=== PATIENT | male | born 1990 | race Caucasian/White ===

== ENCOUNTER 2020-09-04 15:22 | Emergency (ER) | payer BC, OTHER ==
--- NOTE | 2020-09-04 16:25 | EDM.PDOC ---
ED HPI GENERAL MEDICAL PROBLEM - General Chief Complaint: Back Pain or Injury Stated Complaint: LOW BACK PAIN Time Seen by Provider: 09/04/20 15:50 - History of Present Illness INITIAL COMMENTS - FREE TEXT/NARRATIVE: 30-year-old male presents the emergency room with back pain. About a month ago the patient injured his back doing some heavy overhead lifting he thought he felt a pop in his back. He has been seen in the clinic a few times, however this is not getting better. Patient's been using ibuprofen sounds like 800 mg 4 times a day. He is on a PPI and Carafate for stomach trouble. 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 The patient is also noted that he is voiding more than normal. However he has not lost any bowel or bladder control. He has no pain that really extends down into his legs. The pain seems to be worse on the right side and is not midline. Right Lower Back Pain Score (Numeric/FACES): 7 - Related Data Allergies Allergy/AdvReac Type Severity Reaction Status Date / Time No Known Allergies Allergy Verified 12/06/19 13:00 CDT Home Meds: Home Meds Anti Reflux Medication 09/04/20 [History] Cyclobenzaprine [Flexeril] 10 mg PO BEDTIME #14 tab 09/04/20 [Rx] Naproxen [Naprosyn] 500 mg PO BID #20 tablet 09/04/20 [Rx] Past Medical History HEENT History: Reports: None Cardiovascular History: Reports: None Respiratory History: Reports: None Gastrointestinal History: Reports: GERD Genitourinary History: Reports: None Musculoskeletal History: Reports: Amputation Other Musculoskeletal History: L tip of ring finger Neurological History: Reports: None Psychiatric History: Reports: None Endocrine/Metabolic History: Reports: None Immunologic History: Reports: None Oncologic (Cancer) History: Reports: None Dermatologic History: Reports: None - Infectious Disease History Infectious Disease History: Reports: None - Past Surgical History Head Surgeries/Procedures: Reports: None Social & Family History - Family History Family Medical History: No Pertinent Family History - Tobacco Use Tobacco Use Status *Q: Never Tobacco User - Caffeine Use Caffeine Use: Reports: Energy Drinks - Recreational Drug Use Recreational Drug Use: No ED ROS GENERAL - Review of Systems Review Of Systems: See Below Constitutional: Reports: No Symptoms HEENT: Reports: No Symptoms Respiratory: Reports: No Symptoms Cardiovascular: Reports: No Symptoms GI/Abdominal: Reports: No Symptoms Musculoskeletal: Reports: Back Pain Neurological: Reports: No Symptoms. Denies: Numbness, Paresthesia, Tingling ED EXAM, UPPER BACK/NECK PAIN - Physical Exam Exam: See Below Exam Limited By: No Limitations General Appearance: Alert, No Apparent Distress Head Exam: Atraumatic, Normocephalic Neck Exam: Non-Tender, Full Range of Motion, Normal Alignment, Normal Inspection Cardiovascular/Respiratory: Regular Rate, Rhythm, No M/R/G, No JVD, Normal Breath Sounds, No Respiratory Distress GI/Abdominal: Normal Bowel Sounds, Soft, Non-Tender Back Exam: Normal Inspection, Muscle Spasm (Right lumbar area involving the paraspinous musculature). No: CVA Tenderness (L), CVA Tenderness (R), Vertebral Tenderness Extremities: Normal Inspection, No Pedal Edema, Other (Straight leg raises cause discomfort in the buttocks and posterior thigh area on the right side) Course - Vital Signs Last Recorded V/S: Last Vital Signs Temp 36.6 C 09/04/20 15:27 Pulse 92 09/04/20 15:27 Resp 17 09/04/20 15:27 BP 132/83 09/04/20 15:27 Pulse Ox 98 09/04/20 15:27 - Orders/Labs/Meds Orders: Active Orders 24 hr Category Date Time Status Lumbar Spine 2 or 3V [CR] Stat Exams 09/04/20 16:16 Taken Labs: Laboratory Tests 09/04/20 Range/Units 16:59 Urine Color Yellow (Yellow) Urine Appearance Clear (Clear) Urine pH 7.5 (5.0-8.0) Ur Specific [place] 1.025 (1.005-1.030) Urine Protein Trace H (Negative) Urine Glucose (UA) Negative (Negative) Urine Ketones Negative (Negative) Urine Occult Blood Negative (Negative) Urine Nitrite Negative (Negative) Urine Bilirubin Negative (Negative) Urine Urobilinogen 0.2 (0.2-1.0) Ur Leukocyte Esterase Negative (Negative) Urine RBC 0-5 (0-5) /hpf Urine WBC 0-5 (0-5) /hpf Ur Squamous Epith Cells Not seen (0-5) /hpf Amorphous Sediment Few H (NOT SEEN) /hpf Urine Bacteria Few (FEW) /hpf Urine Mucus Not seen (FEW) /hpf - Re-Assessments/Exams Free Text/Narrative Re-Assessment/Exam: 09/04/20 17:45 Analysis is not suggestive of infectious process. Lumbar spine x-rays are negative for any acute changes he has some developing degenerative changes and perhaps a slight loss of lordotic curvature. Patient will be changed to Naprosyn he seems to be tolerating large doses of ibuprofen with his stomach issues but he is taking a PPI and is on Carafate. We will give him some Flexeril for nighttime use only. Departure - Departure Time of Disposition: 17:47 Disposition: Home, Self-Care 01 Clinical Impression: Low back strain - Discharge Information Referrals: PCP,None [Ordering Only Provider] - Forms: ED Department Discharge Additional Instructions: Return to the emergency room with any questions problems or worsening symptoms. Continue to take your stomach medication the Nexium and the Carafate. You have been started on naproxen this is like ibuprofen except he take it twice a day. Stop the ibuprofen. You have been started on Flexeril, cyclobenzaprine, this is a muscle relaxant. Take 1 every evening for 7 days and then as needed allow 12 hours after using this medication before driving or returning to work. Your prescriptions have been sent electronically to [facility]. Sepsis Event Note (ED) - Evaluation Sepsis Screening Result: No Definite Risk - Focused Exam Vital Signs: Vital Signs Temp Pulse Resp BP Pulse Ox 09/04/20 15:27 36.6 C 92 17 132/83 98 - My Orders Last 24 Hours: My Active Orders 09/04/20 16:16 Lumbar Spine 2 or 3V [CR] Stat - Assessment/Plan Last 24 Hours: My Active Orders 09/04/20 16:16 Lumbar Spine 2 or 3V [CR] Stat
--- NOTE | 2020-09-06 16:09 | CR ---
Lumbar spine: AP and lateral views of the lumbar spine were obtained. Comparison: No previous lumbar spine imaging is available. Mild disc space narrowing within the lower thoracic spine as well as posterior at L1-2, L2-3, L3-4 and L4-5. Mild scattered endplate osteophytes are seen. Pedicles are intact. Transverse and spinous processes are intact. Sacroiliac joints are normal. Impression: 1. Mild degenerative change as noted above. 2. Nothing acute is definitely seen. Diagnostic code #2
== END 2020-09-04 18:07 | disposition home or self-care (01) ==
LOC: JD.ED 15:22
DX: S39.012A Strain of muscle, fascia and tendon of lower back, initial encounter (principal); X50.9XXA Other and unspecified overexertion or strenuous movements or postures, initial encounter
CPT/HCPCS: 72100; 72100-26; 81001; 99283; 99283-25

== ENCOUNTER 2020-11-09 11:46 | Emergency (ER) | payer BC ==
--- NOTE | 2020-11-09 14:20 | EDM.PDOC ---
ED HPI GENERAL MEDICAL PROBLEM - General Chief Complaint: Genitourinary Problem Stated Complaint: FREQUENT URINATION/ BURN WHILE URINATING Time Seen by Provider: 11/09/20 14:15 - History of Present Illness INITIAL COMMENTS - FREE TEXT/NARRATIVE: 30-year-old male presents the emergency room with difficulties with urination. Patient has frequency and discomfort with urination. Apparently this is been an ongoing issue the patient had a catheter placed several years ago and when he woke up he tried to pull it out and since that time he has had worsening pain with voiding. He has had difficulty getting his stream going but now he is having frequency and discomfort with this. This is new. He has an appointment to see a regular doctor coming up this next week. But now the frequency and discomfort has developed. Patient denies any suspicious exposures. And he has never had any other infectious process down here. He has not had recent fevers or chills no significant abdominal discomfort nausea or vomiting. Lower Back Pain Score (Numeric/FACES): 4 - Related Data Allergies Allergy/AdvReac Type Severity Reaction Status Date / Time No Known Allergies Allergy Verified 11/09/20 11:59 Home Meds: Home Meds Esomeprazole [NexIUM] 20 mg PO DAILY 11/09/20 [History] Past Medical History HEENT History: Reports: None Cardiovascular History: Reports: None Respiratory History: Reports: None Gastrointestinal History: Reports: None Genitourinary History: Reports: None Musculoskeletal History: Reports: Amputation Other Musculoskeletal History: L tip of ring finger Neurological History: Reports: None Psychiatric History: Reports: None Endocrine/Metabolic History: Reports: None Immunologic History: Reports: None Oncologic (Cancer) History: Reports: None Dermatologic History: Reports: None - Infectious Disease History Infectious Disease History: Reports: None - Past Surgical History Head Surgeries/Procedures: Reports: None Social & Family History - Family History Family Medical History: No Pertinent Family History - Tobacco Use Tobacco Use Status *Q: Never Tobacco User Second Hand Smoke Exposure: No - Caffeine Use Caffeine Use: Reports: Coffee - Recreational Drug Use Recreational Drug Use: No ED ROS GENERAL - Review of Systems Review Of Systems: See Below Constitutional: Reports: No Symptoms Respiratory: Reports: No Symptoms Cardiovascular: Reports: No Symptoms GI/Abdominal: Reports: No Symptoms : Reports: Dysuria, Frequency. Denies: Flank Pain, Hematuria, Incontinence, Urgency Musculoskeletal: Reports: No Symptoms Neurological: Reports: No Symptoms ED EXAM, RENAL/ - Physical Exam Exam: See Below Exam Limited By: No Limitations General Appearance: Alert, No Apparent Distress Respiratory/Chest: No Respiratory Distress, Lungs Clear, Normal Breath Sounds Cardiovascular: Regular Rate, Rhythm, No Edema, No Murmur GI/Abdominal: Normal Bowel Sounds, Soft, Non-Tender, Other (No tenderness over the bladder) Back Exam: Normal Inspection. No: CVA Tenderness (L), CVA Tenderness (R) Neurological: Alert, Oriented, Normal Cognition Course - Vital Signs Last Recorded V/S: Last Vital Signs Temp 36.1 C 11/09/20 11:56 Pulse 94 11/09/20 11:56 Resp 16 11/09/20 11:56 BP 139/85 11/09/20 11:56 Pulse Ox 97 11/09/20 11:56 - Orders/Labs/Meds Labs: Laboratory Tests 11/09/20 11/09/20 Range/Units 12:51 12:51 Urine Color Yellow (Yellow) Urine Appearance Clear (Clear) Urine pH 6.5 (5.0-8.0) Ur Specific [place] > or = 1.030 (1.005-1.030) Urine Protein Negative (Negative) Urine Glucose (UA) Negative (Negative) Urine Ketones Negative (Negative) Urine Occult Blood Negative (Negative) Urine Nitrite Negative (Negative) Urine Bilirubin Negative (Negative) Urine Urobilinogen 0.2 (0.2-1.0) Ur Leukocyte Esterase Negative (Negative) C trachomatis DNA (PCR) Not detected N gonorrhoeae DNA (PCR) Not detected - Re-Assessments/Exams Free Text/Narrative Re-Assessment/Exam: 11/09/20 15:30 Alysis is unremarkable GC and chlamydia is negative the patient probably should follow-up with urology. He has an appointment coming up this week with a new primary provider they can get that scheduled. Departure - Departure Time of Disposition: 15:30 Disposition: Home, Self-Care 01 Clinical Impression: Dysuria - Discharge Information Referrals: PCP,None [Primary Care Provider] - Forms: ED Department Discharge Additional Instructions: Return to the emergency room with any questions or problems. Today we tested your urine and there is no sign of infection we also checked for GC and chlamydia those were negative. Given your history the next best maneuver would be follow-up with a urologist. You have an appointment coming up to establish primary care they can set this up for you. Sepsis Event Note (ED) - Evaluation Sepsis Screening Result: No Definite Risk - Focused Exam Vital Signs: Vital Signs Temp Pulse Resp BP Pulse Ox 11/09/20 11:56 36.1 C 94 16 139/85 97
[2020-11-09 14:58] LABS: C. TRACHOMATIS BY PCR NOT DETECTED; N. GONORRHOEAE BY PCR NOT DETECTED
== END 2020-11-09 15:40 | disposition home or self-care (01) ==
LOC: JD.ED 11:46
DX: R30.0 Dysuria (principal); R35.0 Frequency of micturition; M54.5 Low back pain
CPT/HCPCS: 81003; 87491; 87591; 99282; 99283

== ENCOUNTER 2021-01-30 14:15 | Emergency (ER) | payer BC, OTHER ==
[2021-01-30] MEDS ORDERED: HYDROmorphone 1 MG/ML Syringe IM ONE (14:48)
--- NOTE | 2021-01-30 14:56 | EDM.PDOC ---
ED HPI GENERAL MEDICAL PROBLEM - General Chief Complaint: Upper Extremity Injury/Pain Stated Complaint: LT RING FINGER COMPLAINT Time Seen by Provider: 01/30/21 14:30 Source of Information: Reports: Patient, RN Notes Reviewed History Limitations: Reports: No Limitations - History of Present Illness INITIAL COMMENTS - FREE TEXT/NARRATIVE: Patient is a 30-year-old male who presents to the ER for his left ring finger pain. 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 He had a recent follow-up with his surgeon, for a small lump on the side of his finger, and the surgeon thought that this was likely just scar tissue forming. Patient notes that since then, the lump has been getting more progressively red, tender, and it feels like there is a heartbeat in the lump. This is roughly pea-sized on the patient's left distal ring finger. He states it is fairly tender, and he cannot really do much for work, is taking his gloves on and off seems to hurt even worse. He is not take anything at home for pain management. He said no fevers or chills, cough or shortness of breath, nausea/vomiting/diarrhea. Left Finger-Ring Pain Score (Numeric/FACES): 7 - Related Data Allergies Allergy/AdvReac Type Severity Reaction Status Date / Time No Known Allergies Allergy Verified 11/09/20 11:59 Home Meds: Home Meds Esomeprazole [NexIUM] 20 mg PO DAILY 11/09/20 [History] Acetaminophen/oxyCODONE [Percocet 325-5 MG] 1 each PO Q6H PRN #12 tab 01/30/21 [Rx] Doxycycline [Vibramycin] 100 mg PO BID 7 Days #14 tab 01/30/21 [Rx] Past Medical History HEENT History: Reports: None Cardiovascular History: Reports: None Respiratory History: Reports: None Gastrointestinal History: Reports: None Genitourinary History: Reports: None Musculoskeletal History: Reports: Amputation Other Musculoskeletal History: L tip of ring finger Neurological History: Reports: None Psychiatric History: Reports: None Endocrine/Metabolic History: Reports: None Immunologic History: Reports: None Oncologic (Cancer) History: Reports: None Dermatologic History: Reports: None - Infectious Disease History Infectious Disease History: Reports: None - Past Surgical History Head Surgeries/Procedures: Reports: None Social & Family History - Family History Family Medical History: No Pertinent Family History - Tobacco Use Tobacco Use Status *Q: Never Tobacco User - Caffeine Use Caffeine Use: Reports: Energy Drinks, Soda - Recreational Drug Use Recreational Drug Use: No Review of Systems - Review of Systems Review Of Systems: Comprehensive ROS is negative, except as noted in HPI. ED EXAM, GENERAL - Physical Exam Exam: See Below Exam Limited By: No Limitations General Appearance: Alert, WD/WN, No Apparent Distress Respiratory/Chest: No Respiratory Distress, Lungs Clear, Normal Breath Sounds, No Accessory Muscle Use, Chest Non-Tender Cardiovascular: Normal Peripheral Pulses, Regular Rate, Rhythm, No Edema Peripheral Pulses: 2+: Radial (L), Radial (R) Extremities: Normal Range of Motion, Normal Capillary Refill Neurological: Alert, Oriented, Normal Cognition, No Motor/Sensory Deficits Psychiatric: Normal Affect, Normal Mood Skin Exam: Warm, Dry, Intact, No Rash, Erythema (to distal left ring finger), Increased Warmth (to distal left ring finger) ED TRAUMA EXTREMITY PROCEDURES - I&D Site: Left distal finger tip Skin Prep: Chlorhexidine (Hibiciens), Saline Local Anesthesia: Lidocaine: Other (area was anesthetized with cold spray then cleaned with hibiclens) Area Incised With: 11 Blade Drainage: Purulent, Small Amount Probed to Break Up Loculations: No Sterile Dressing: Adhesive Dressing Complications: No Course - Vital Signs Last Recorded V/S: Last Vital Signs Temp 98.9 F 01/30/21 14:38 Pulse 87 01/30/21 14:38 Resp 20 01/30/21 14:38 BP 127/81 01/30/21 14:38 Pulse Ox 97 01/30/21 14:38 - Orders/Labs/Meds Meds: Medications Discontinued Medications Generic Name Dose Route Start Last Admin Trade Name Freq PRN Reason Stop Dose Admin Hydromorphone HCl 1 mg 01/30/21 14:48 Hydromorphone 1 Mg/Ml Syringe IM 01/30/21 14:49 ONETIME ONE - Re-Assessments/Exams Free Text/Narrative Re-Assessment/Exam: 01/30/21 14:55 Patient presents to the ER for the evaluation of his left ring finger lesion. This did have the appearance of a white center, this was incised and drained, there is a very scant amount of a thick white purulent material that was expressed. Some bloody material was expressed towards the end of the purulent material. Patient tolerated the procedure well. He was having quite a bit of pain after this due to the amount of pressure I had to apply to the fingertip. We will go ahead and give him 1 mg IM Dilaudid, will start him on some oral pain medication, and antibiotic medication, I did direct him to follow-up with his surgeon Dr. Sheridan on Tuesday, to let him know that he was seen in the ER and had the area drained. Departure - Departure Time of Disposition: 14:56 Disposition: Home, Self-Care 01 Condition: Good Clinical Impression: Abscess of finger of left hand - Discharge Information *PRESCRIPTION DRUG MONITORING PROGRAM REVIEWED*: Yes *COPY OF PRESCRIPTION DRUG MONITORING REPORT IN PATIENT MICKEY: No Prescriptions: Acetaminophen/oxyCODONE [Percocet 325-5 MG] 1 each PO Q6H PRN #12 tab PRN Reason: Pain Doxycycline [Vibramycin] 100 mg PO BID 7 Days #14 tab Instructions: Skin Abscess, [id number] Referrals: PCP,None [Primary Care Provider] - Additional Instructions: You were evaluated in the ER today regarding a suspected skin infection. The area on your left ring finger, was incised and drained at this ER visit, this should hopefully let the wound continue to drain over the next day or 2. You were given a prescription for a strong pain medication, oxycodone/acetaminophen 5/325 mg, please take 1 tab every 6 hours as needed for pain not relieved by Tylenol or ibuprofen alone. Please note this medication does contain Tylenol in it, so do not take more than 4000 mg in a 24-hour time span. These medications can be addictive, so please take as few as possible to achieve adequate pain control. These meds can also be quite constipating, recommend that you increase your oral fluid intake and take a stool softener like MiraLAX while taking these medications. Do not drive while taking this medication. You were given an antibiotic, doxycycline 100 mg twice daily please take as prescribed until the course is done or told otherwise by different provider. Please note that this antibiotic will take at least 48 hours to start working appropriately. Please note this antibiotic can cause some sun sensitivity, so if you are going to be outside, please use sunscreen liberally. This medication was electronically sent to the [facility] located in the [employer] [facility]. You may try to use heat/ice packs to the area to help reduce pain/swelling. Highly recommend you use some warm soapy water over the weekend, and soak the finger as much as tolerated, to also provide good wound cleansing. You may take 500 mg Tylenol or 600 mg ibuprofen every 6 hours as needed for further pain relief. Do not exceed 4000 mg Tylenol or 3200 mg ibuprofen in a 24-hour time span. Please return to the ER at any time if your symptoms change or worsen. Sepsis Event Note (ED) - Evaluation Sepsis Screening Result: No Definite Risk - Focused Exam Vital Signs: Vital Signs Temp Pulse Resp BP Pulse Ox 01/30/21 14:38 98.9 F 87 20 127/81 97
[2021-01-30] MEDS ORDERED: Acetaminophen/oxyCODONE 325-5 MG Tab PO ONE (15:12)
== END 2021-01-30 15:30 | disposition home or self-care (01) ==
LOC: JD.ED 14:15
DX: L02.512 Cutaneous abscess of left hand (principal)
CPT/HCPCS: 26010; 99283; A9270; 10060

== ENCOUNTER 2021-03-01 14:42 | Emergency (ER) | payer OTHER ==
--- NOTE | 2021-03-01 15:29 | EDM.PDOC ---
ED HPI GENERAL MEDICAL PROBLEM - General Chief Complaint: Wound Recheck Stated Complaint: FINGER INFECTED FROM WORK INJURY Time Seen by Provider: 03/01/21 14:45 Source of Information: Reports: Patient History Limitations: Reports: No Limitations - History of Present Illness INITIAL COMMENTS - FREE TEXT/NARRATIVE: 30-year-old male presents the emergency department with complaints of left ring finger pain. 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 He was recently seen in the emergency department about a month ago and at that time the distal tip of the finger had a pea-sized lump noted with a white tip. The provider did ryan the area and did get a small amount of thick white drainage from it and then he was started on doxycycline. The patient states that this did not seem to work and he still is having a significant amount of pain to the area that was lanced. He states that any little bit of bumping the finger causes him exquisite pain. He denies any fever, chills, nausea, vomiting or diarrhea. He was instructed to follow-up with the surgeon who performed the amputation however he states he works on [employer] and has not had time. Left Finger-Ring Pain Score (Numeric/FACES): 8 - Related Data Allergies Allergy/AdvReac Type Severity Reaction Status Date / Time No Known Allergies Allergy Verified 03/01/21 15:00 Home Meds: Home Meds Esomeprazole [NexIUM] 20 mg PO DAILY 11/09/20 [History] Past Medical History HEENT History: Reports: None Cardiovascular History: Reports: None Respiratory History: Reports: None Gastrointestinal History: Reports: None Genitourinary History: Reports: None Musculoskeletal History: Reports: Amputation Other Musculoskeletal History: L tip of ring finger Neurological History: Reports: None Psychiatric History: Reports: None Endocrine/Metabolic History: Reports: None Immunologic History: Reports: None Oncologic (Cancer) History: Reports: None Dermatologic History: Reports: None - Infectious Disease History Infectious Disease History: Reports: None - Past Surgical History Head Surgeries/Procedures: Reports: None Social & Family History - Family History Family Medical History: No Pertinent Family History - Tobacco Use Tobacco Use Status *Q: Never Tobacco User Second Hand Smoke Exposure: No - Caffeine Use Caffeine Use: Reports: Energy Drinks, Soda - Recreational Drug Use Recreational Drug Use: No Review of Systems - Review of Systems Review Of Systems: Comprehensive ROS is negative, except as noted in HPI. ED EXAM, GENERAL - Physical Exam Exam: See Below Exam Limited By: No Limitations General Appearance: Alert, WD/WN, No Apparent Distress Ears: Normal External Exam, Hearing Grossly Normal Nose: Normal Inspection Throat/Mouth: Normal Inspection, Normal Lips, Normal Voice, No Airway Compromise Head: Atraumatic Neck: Normal Inspection, Supple Respiratory/Chest: No Respiratory Distress, No Accessory Muscle Use Cardiovascular: Normal Peripheral Pulses, Regular Rate, Rhythm GI/Abdominal: No Distention (Male) Exam: Deferred Rectal (Males) Exam: Deferred Back Exam: Normal Inspection Extremities: Normal Range of Motion, No Pedal Edema, Normal Capillary Refill. No: Normal Inspection (Scabbed pen tip sized area noted to medial portion of distal tip of the left ring finger), Non-Tender (Tenderness noted to distal tip of left ring finger) Neurological: Alert, Oriented, Normal Cognition Psychiatric: Normal Affect, Normal Mood Skin Exam: Warm, Dry, Normal Color, No Rash. No: Intact (Scabbed pen tip sized area noted to distal portion of medial tip of left ring finger) Lymphatic: No Adenopathy Course - Vital Signs Text/Narrative:: Upon assessment, the ring finger does appear well-healed. There is a scabbed area on the medial portion on the tip of the amputation however this appears to be healing well. Patient states that the area is more swollen and he feels like there is fluid in there however I do not see or feel any area that would be worthy of lancing at this time. He states that it does throb at times as he describes it as being able to feel his heartbeat in the tip of the finger. If the area is red and and warm to touch. I will prescribe him Keflex 500 mg 4 times daily for 10 days. I had a lengthy discussion with him regarding the need to follow-up with the surgeon who performed the amputation as he may need to have a revision completed of the amputation as it is not prudent to continue placing him on antibiotics. The patient does verbalize understanding and agrees to schedule an appointment. In the meantime I have informed him that he can take Tylenol 650 mg alternating every 4 hours with ibuprofen 600 mg for pain control. Patient is agreeable to this plan of care. Last Recorded V/S: Last Vital Signs Temp 97.8 F 03/01/21 14:59 Pulse 96 03/01/21 14:59 Resp 16 03/01/21 14:59 BP 144/71 H 03/01/21 14:59 Pulse Ox 97 03/01/21 14:59 Departure - Departure Time of Disposition: 15:29 Disposition: Home, Self-Care 01 Condition: Good Clinical Impression: Cellulitis Qualifiers: Site of cellulitis: extremity Site of cellulitis of extremity: finger Laterality: left Qualified Code(s): L03.012 - Cellulitis of left finger - Discharge Information Referrals: PCP,None [Primary Care Provider] - Additional Instructions: You were seen in the emergency department today for increased swelling and redness noted to the amputation site of the left ring finger. I did not feel that there was any area that could be opened and drained at this time. I feel that the risk of infection or worsening infection outweighs the benefit of lancing the area. I have given you prescription for Keflex, and antibiotic. You need to take 1 tab 4 times daily for 10 days. Be sure to fully complete the course of antibiotics. It is also imminent that you follow-up with the surgeon who performed the amputation of your left ring finger as he made need to do some kind of revision to that area. Sepsis Event Note (ED) - Evaluation Sepsis Screening Result: No Definite Risk - Focused Exam Vital Signs: Vital Signs Temp Pulse Resp BP Pulse Ox 03/01/21 14:59 97.8 F 96 16 144/71 H 97
== END 2021-03-01 16:03 | disposition home or self-care (01) ==
LOC: JD.ED 14:42
DX: L03.012 Cellulitis of left finger (principal)
CPT/HCPCS: 99283

== ENCOUNTER 2023-02-08 17:55 | Emergency (ER) | payer OTHER, BC ==
[2023-02-08] MEDS ORDERED: Diphtheria,Pertussis(Acell),Tetanus Vaccine 0.5 ML Syringe IM ONE (18:15)
[2023-02-08] MEDS ORDERED: Lactated Ringers 1,000 ML IV SCH (18:15)
[2023-02-08] MEDS ORDERED: Iopamidol 612 MG/ML 100 ML Bottle IVPUSH ONE (18:26)
[2023-02-08 18:32] LABS: BASOPHILS ABSOLUTE AUTO 0.03 K/mm3 (0.01-0.08); BASOPHILS PERCENT AUTO 0.4 % (0.1-1.2); EOSINOPHILS ABSOLUTE AUTO 0.22 K/mm3 (0.04-0.54); EOSINOPHILS PERCENT AUTO 2.6 (0.8-7.0); HEMATOCRIT 42.9 % (40.1-51.0); HEMOGLOBIN 14.3 gm/dl (13.7-17.5); IMMATURE GRAN ABSOLUTE AUTO 0.02 K/mm3 (0.00-0.10); IMMATURE GRAN PERCENT AUTO 0.2 % (<=1.0); LYMPHOCYTES ABSOLUTE AUTO 3.28 K/mm3 (1.32-3.57); LYMPHOCYTES PERCENT AUTO 39.1 % (21.8-53.1); MEAN CORPUSCULAR HEMOGLOBIN 30.6 pg (25.7-32.2); MEAN CORPUSCULAR HGB CONC 33.3 g/dl (32.2-35.5); MEAN CORPUSCULAR VOLUME 91.7 fl (79.0-92.2); MEAN PLATELET VOLUME 9.9 fl (9.4-12.3); MONOCYTES ABSOLUTE AUTO 1.09 K/mm3 (0.30-0.82); NEUTROPHILS ABSOLUTE AUTO 3.75 K/mm3 (1.78-5.38); NEUTROPHILS PERCENT AUTO 44.7 % (34.0-67.9); PLATELET COUNT,PLT 275 K/mm3 (163-337); RED BLOOD CELL COUNT 4.68 M/mm3 (4.63-6.08); WHITE BLOOD CELL COUNT,WBC 8.39 K/mm3 (4.23-9.07)
[2023-02-08] MEDS ORDERED: fentaNYL 100 MCG/2 ML SDV ONE (18:43)
[2023-02-08 18:45] LABS: A/G RATIO 1.1 (1-2); ALBUMIN 4.1 g/dl (3.4-5.0); ANION GAP 10.6 (5-15); BILIRUBIN TOTAL 0.3 mg/dL (0.2-1.0); BUN/CREATININE RATIO 13.8 (14-18); CREATININE 1.3 mg/dL (0.7-1.3); EST CRCL DRUG DOSING (CG) 85.28 mL/min; INR 0.93; POTASSIUM,K 3.6 mEq/L (3.5-5.1); PROTEIN TOTAL,TP 7.8 g/dl (6.4-8.2)
[2023-02-08] MEDS ORDERED: fentaNYL 100 MCG/2 ML SDV IVPUSH ONE (18:45)
[2023-02-08 18:46] LABS: PTT,PARTIAL THROMBOPLSTIN TIME 22.5 SECONDS (21.7-31.4)
== END 2023-02-08 21:09 | disposition home or self-care (01) ==
LOC: JD.ED 17:55
DX: S70.11XA Contusion of right thigh, initial encounter (principal); S80.01XA Contusion of right knee, initial encounter; V23.49XA Other motorcycle driver injured in collision with car, pick-up truck or van in traffic accident, initial encounter
CPT/HCPCS: 36415; 70450; 71260; 72125; 73110; 73552; 74177; 80053; 82150; 83690; 85025; 85610; 85730; 86850; 86900; 86901; 93005; 96361; 96374; 99285; J3010; J7120; Q9967; 93010; 99284

== ENCOUNTER 2023-02-22 03:11 | Emergency (ER) | payer BC ==
[2023-02-22] MEDS ORDERED: HYDROmorphone 0.5 MG/0.5 ML Syringe IVPUSH ONE (03:53)
[2023-02-22] MEDS ORDERED: Ondansetron 4 MG/2 ML SDV IVPUSH ONE (03:53)
[2023-02-22] MEDS ORDERED: Sodium Chloride 0.9% 1,000 ML IV SCH (04:00)
[2023-02-22 04:13] LABS: HEMATOCRIT 45.2 % (40.1-51.0); HEMOGLOBIN 15.3 gm/dl (13.7-17.5); MEAN CORPUSCULAR HEMOGLOBIN 30.8 pg (25.7-32.2); MEAN CORPUSCULAR HGB CONC 33.8 g/dl (32.2-35.5); MEAN CORPUSCULAR VOLUME 91.1 fl (79.0-92.2); MEAN PLATELET VOLUME 9.5 fl (9.4-12.3); PLATELET COUNT,PLT 293 K/mm3 (163-337); RED BLOOD CELL COUNT 4.96 M/mm3 (4.63-6.08); WHITE BLOOD CELL COUNT,WBC 8.35 K/mm3 (4.23-9.07)
[2023-02-22 04:32] LABS: BAND PERCENT MAN 0 % (0-10); BASOPHILS PERCENT MAN 2 (0.2-1.2); EOSINOPHILS PERCENT MAN 3 % (0.8-7.0); LYMPHOCYTES % ATYPICAL MANUAL 0 %; LYMPHOCYTES PERCENT MAN 32 % (20-40); MONOCYTES PERCENT MAN 9 % (2-10)
[2023-02-22 04:34] LABS: PLATELET COUNT ESTIMATE ADEQUATE
[2023-02-22 04:36] LABS: A/G RATIO 1.2 (1-2); ALANINE AMINOTRANSFERASE,ALT 54 U/L (16-63); ALBUMIN 4.4 g/dl (3.4-5.0); ALKALINE PHOSPHATASE 84 U/L (46-116); ASPARTATE AMNIOTRANSFERASE,AST 31 U/L (15-37); BILIRUBIN TOTAL 0.4 mg/dL (0.2-1.0); BLOOD UREA NITROGEN,BUN 19 mg/dL (7-18); BUN/CREATININE RATIO 17.3 (14-18); C-REACTIVE PROTEIN <0.2 mg/dL (<1.0); CALCIUM 9.4 mg/dL (8.5-10.1); CARBON DIOXIDE,CO2 27 mEq/L (21-32); CHLORIDE,CL 103 mEq/L (98-107); CREATININE 1.1 mg/dL (0.7-1.3); EST CRCL DRUG DOSING (CG) 94.62 mL/min; ESTIMATED GFR 90 mL/min (>60); GLUCOSE RANDOM 97 mg/dL (70-99); PROTEIN TOTAL,TP 8.2 g/dl (6.4-8.2); SODIUM,NA 139 mEq/L (136-145)
[2023-02-22] MEDS ORDERED: Iopamidol 612 MG/ML 100 ML Bottle IVPUSH ONE (06:45)
[2023-02-22] MEDS ORDERED: Sodium Chloride 0.9% 10 ML Syringe FLUSH ONE (06:45)
== END 2023-02-22 05:01 | disposition home or self-care (01) ==
LOC: JD.ED 03:11
DX: K62.5 Hemorrhage of anus and rectum (principal); K62.89 Other specified diseases of anus and rectum; R10.9 Unspecified abdominal pain; Z79.899 Other long term (current) drug therapy; Z86.16 Personal history of COVID-19
CPT/HCPCS: 36415; 74177; 80053; 85007; 85027; 86140; 96374; 96375; 99284; J1170; J2405; J3490; J7030; Q9967